=== PATIENT | female | born 1950 | race Caucasian/White ===

== ENCOUNTER 2018-09-19 08:24 | Emergency (ER) | payer OTHER ==
[2018-09-19] MEDS ORDERED: Fluorescein Opthalmic Strip ONE (08:40)
== END 2018-09-19 08:56 | disposition home or self-care (01) ==
LOC: BURERS 08:24
DX: S05.02XA Injury of conjunctiva and corneal abrasion without foreign body, left eye, initial encounter (principal); X58.XXXA Exposure to other specified factors, initial encounter
CPT/HCPCS: 99283